=== PATIENT | female | born 1995 | race Caucasian/White ===

== ENCOUNTER 2018-01-22 07:42 | Outpatient (CLI) | payer BC, SELFPAY ==
[2018-01-22 08:37] LABS: HCT 31.7 % (36.0-46.0); HGB 10.7 g/dL (12.0-15.5); Mean Corp. HGB Concentration 33.8 g/dL (32.0-36.0); Mean Corpuscular Hemoglobin 31.4 pg (27.0-33.0); Mean Platelet Volume 9.9 fL (8.0-11.0); Platelet Count 275 x1000/uL (130-400); RBC 3.41 m/cumm (4.00-5.20); RBC Distribution Width 12.7 % (11.7-14.6); White Blood Cell Count 9.11 k/cumm (4.4-10.8)
[2018-01-22 08:56] LABS: Glucose,1 Hr (Glucola) 161 mg/dL (80-140)
== END 2018-01-22 08:02 ==
PROVIDERS: Visit Provider Advanced Practice Midwife
DX: Z34.92 Encounter for supervision of normal pregnancy, unspecified, second trimester (principal)
CPT/HCPCS: 36415; 82950; 85027

== ENCOUNTER 2018-01-22 12:33 | Outpatient (REF) | payer BC, SELFPAY ==
[2018-01-22 14:38] LABS: *AMPHETAMINES SCREEN URINE Negative (Negative); *BARBITURATES SCREEN URINE Negative (Negative); *BENZODIAZEPINES SCREEN URINE Negative (Negative); Cannabinoids THC Negative (Negative); Cocaine Screen,Urine Negative (Negative); METHADONE URINE SCREEN Negative (Negative); OPIATES URINE SCREEN Negative (Negative); Tricyclic Antidepressants POSITIVE (Negative)
== END 2018-01-22 12:53 ==
LOC: LBN 12:33
PROVIDERS: Visit Provider Advanced Practice Midwife
DX: Z34.91 Encounter for supervision of normal pregnancy, unspecified, first trimester (principal)
CPT/HCPCS: 80307

== ENCOUNTER 2018-01-28 07:10 | Outpatient (CLI) | payer BC, SELFPAY ==
[2018-01-28 09:11] LABS: Glucose 1 Hour 141 mg/dL
[2018-01-28 11:21] LABS: Glucose 3 Hour 124 mg/dL
== END 2018-01-28 07:30 ==
PROVIDERS: Visit Provider Advanced Practice Midwife
DX: Z34.93 Encounter for supervision of normal pregnancy, unspecified, third trimester (principal)
CPT/HCPCS: 36410; 82951

== ENCOUNTER 2018-02-24 16:20 | Observation (INO) | payer BC, SELFPAY ==
[2018-02-24 19:28] LABS: Bilirubin Negative (Negative); Blood Negative (Negative); Clarity Clear; Glucose Negative (Negative); Ketones Negative (Negative); Leukocyte Esterase Negative (Negative); Nitrite Negative (Negative); Specific Gravity 1.015 (1.005-1.025); Urobilinogen 0.2 EU/dL (Up TO 0.2)
== END 2018-02-25 00:05 | disposition home or self-care (01) ==
LOC: OBS 16:31
PROVIDERS: Admitting Provider Advanced Practice Midwife; PCP Family Medicine; Visit Provider Advanced Practice Midwife
DX: O60.03 Preterm labor without delivery, third trimester (principal); O26.893 Other specified pregnancy related conditions, third trimester; R19.7 Diarrhea, unspecified; Z3A.32 32 weeks gestation of pregnancy; O99.343 Other mental disorders complicating pregnancy, third trimester; F32.9 Major depressive disorder, single episode, unspecified; Z83.2 Family history of diseases of the blood and blood-forming organs and certain disorders involving the immune mechanism
CPT/HCPCS: 81003; 82731; 87081; G0378

== ENCOUNTER 2018-03-05 12:35 | Outpatient (REF) | payer BC, SELFPAY | END 2018-03-05 12:55 | LOC: LBN 12:35 | PROVIDERS: PCP Family Medicine; Visit Provider Advanced Practice Midwife | DX: R69 Illness, unspecified (principal) | CPT/HCPCS: 87491; 87591 ==

== ENCOUNTER 2018-03-19 12:22 | Outpatient (REF) | payer BC, SELFPAY ==
[2018-03-24 14:40] LABS: Chlamydia Result Negative; GC Result Negative
== END 2018-03-19 12:42 ==
LOC: LBN 12:22
PROVIDERS: PCP Family Medicine; Visit Provider Nurse Practitioner
DX: Z34.93 Encounter for supervision of normal pregnancy, unspecified, third trimester (principal); Z11.3 Encounter for screening for infections with a predominantly sexual mode of transmission; Z36.85 Encounter for antenatal screening for Streptococcus B
CPT/HCPCS: 87491; 87591; 87081

== ENCOUNTER 2018-03-26 12:12 | Outpatient (REF) | payer BC, SELFPAY ==
[2018-03-27 14:16] LABS: Chlamydia Result Negative; GC Result Negative; Specimen Description URINE
== END 2018-03-26 12:32 ==
LOC: LBN 12:12
PROVIDERS: PCP Family Medicine; Visit Provider Advanced Practice Midwife
DX: Z11.3 Encounter for screening for infections with a predominantly sexual mode of transmission (principal)
CPT/HCPCS: 87491; 87591

== ENCOUNTER 2018-04-01 17:15 | Inpatient (IN) | payer BC, SELFPAY ==
[2018-04-01 18:31] LABS: ROM Plus Positive
[2018-04-01 19:12] LABS: HGB 11.4 g/dL (12.0-15.5); Mean Corp. HGB Concentration 33.5 g/dL (32.0-36.0); Mean Corpuscular Hemoglobin 29.5 pg (27.0-33.0); Mean Corpuscular Volume 88.1 fL (80-95); Mean Platelet Volume 10.4 fL (8.0-11.0); Platelet Count 298 x1000/uL (130-400); RBC 3.86 m/cumm (4.00-5.20); RBC Distribution Width 13.5 % (11.7-14.6); White Blood Cell Count 18.03 k/cumm (4.4-10.8)
[2018-04-01] MEDS: Normal Saline Flush 10 ML SYR IVP (19:41)
[2018-04-02] MEDS: Normal Saline Flush 10 ML SYR IVP ×2 (03:47→08:15)
[2018-04-02] MEDS: Calcium Carbonate *TUMS* 500 MG CHEW (16:34)
[2018-04-02] MEDS: fentaNYL 100 MCG/2 ML VIAL IT (18:10)
[2018-04-02] MEDS: Bupivacaine 0.25% Pres-Free 30 ML VIAL (18:10)
[2018-04-02] MEDS: Calcium Carbonate *TUMS* 500 MG CHEW PO (22:11)
[2018-04-02 22:12] VITALS: TEMP 37.1
[2018-04-02] MEDS: NALBUPHINE 5 MG in Normal Saline 50 ML 100 MG IVPB (22:12)
[2018-04-03] MEDS: Sertraline 50 MG TAB PO ×2 (00:15→21:19)
[2018-04-03] MEDS: Ibuprofen 600 MG TAB PO ×3 (04:40→23:11)
[2018-04-03] MEDS: Hamamelis Leaf/Glycerin 100 EACH BOX PR ×2 (10:24→14:30)
[2018-04-03] MEDS: Acetaminophen 325 MG TAB 650 MG PO ×2 (15:59→23:12)
[2018-04-03] MEDS: Docusate Sodium 100 MG CAP PO (16:00)
[2018-04-04 07:12] LABS: HCT 23.5 % (36.0-46.0); HGB 7.2 g/dL (12.0-15.5); Mean Corp. HGB Concentration 30.6 g/dL (32.0-36.0); Mean Corpuscular Volume 91.4 fL (80-95); Mean Platelet Volume 9.5 fL (8.0-11.0); Platelet Count 261 x1000/uL (130-400); RBC 2.57 m/cumm (4.00-5.20); RBC Distribution Width 13.8 % (11.7-14.6); White Blood Cell Count 10.88 k/cumm (4.4-10.8)
[2018-04-04] MEDS: Ibuprofen 600 MG TAB PO ×3 (08:15→21:43)
[2018-04-04] MEDS: Acetaminophen 325 MG TAB 650 MG PO ×3 (08:16→20:09)
[2018-04-04] MEDS: Docusate Sodium 100 MG CAP PO (08:16)
[2018-04-04] MEDS: Sertraline 50 MG TAB PO (21:43)
[2018-04-05] MEDS: Acetaminophen 325 MG TAB 650 MG PO ×2 (00:15→12:35)
[2018-04-05] MEDS: Ibuprofen 600 MG TAB PO ×2 (04:02→12:36)
== END 2018-04-05 14:32 | disposition home or self-care (01) | DRG 806 ==
PROVIDERS: Nurse Practitioner; Admitting Provider Advanced Practice Midwife; PCP Family Medicine; Visit Provider Advanced Practice Midwife
DX: O42.02 Full-term premature rupture of membranes, onset of labor within 24 hours of rupture (principal); O63.9 Long labor, unspecified; Z37.0 Single live birth; O99.824 Streptococcus B carrier state complicating childbirth; Z3A.38 38 weeks gestation of pregnancy; O62.1 Secondary uterine inertia; O63.0 Prolonged first stage (of labor); O70.1 Second degree perineal laceration during delivery
CPT/HCPCS: 36415; 84112; 85027; 86850; 86900; 86901; G0378; J2540; J3010; J3490

== ENCOUNTER 2018-05-21 12:50 | Outpatient (REF) | payer BC, SELFPAY ==
[2018-05-23 13:48] LABS: Chlamydia Result Negative; GC Result Negative
== END 2018-05-21 13:10 ==
LOC: LBN 12:50
PROVIDERS: PCP Family Medicine; Visit Provider Nurse Practitioner Women's Health
DX: Z11.3 Encounter for screening for infections with a predominantly sexual mode of transmission (principal)
CPT/HCPCS: 87491; 87591

== ENCOUNTER 2018-07-15 11:44 | Emergency (ER) | payer BC, SELFPAY ==
[2018-07-15] VITALS (12 sets, daily range): BP systolic 124–127; BP diastolic 76–78; PULSE 86–96; RESP 16–20; TEMP 36.5–36.6; O2SAT 92–100
[2018-07-15] MEDS: Lactated Ringers 1,000 ML 1000 ML IV ×2 (11:54→12:50)
[2018-07-15] MEDS: Prochlorperazine 10 MG/2 ML VIAL 5 MG IVP ×2 (12:00→13:31)
[2018-07-15] MEDS: Normal Saline 50 ML 200 ML (12:02)
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
[2018-07-15] MEDS: Mylanta Suspension 30 ML CUP (12:28)
[2018-07-15] MEDS: Lidocaine 2% Viscous 15 ML CUP (12:28)
[2018-07-15 13:06] LABS: Bilirubin Negative (Negative); Blood Trace-intact (Negative); Clarity Clear; Glucose Negative (Negative); Ketones 15 mg/dL (Negative); Leukocyte Esterase Negative (Negative); Nitrite Negative (Negative); Urobilinogen 0.2 EU/dL (Up TO 0.2)
[2018-07-15 13:17] LABS: Bacteria Rare HPF (Negative); C & S Indicated? No/Sq. Contamination; Casts Negative LPF (Negative); Crystals Negative HPF (Negative); Epithelial Cells Moderate HPF (Negative); Mucus Negative (Negative); RBC 0-2 (0-2); WBC 0-2 HPF (0-5)
[2018-07-15] MEDS: HYDROmorphone 2 MG/ML VIAL 0.5 MG IVP (14:55)
[2018-07-15 14:59] LABS: Abs Immature Grans 0.02 k/cumm (0.0-0.09); Absolute Eosinophil Count 0.01 k/cumm (0.0-0.7); Absolute Lymphocyte Count 0.34 k/cumm (1.2-3.4); Absolute Monocyte Count 0.49 k/cumm (0.11-0.7); Absolute Neutrophil Count 11.31 k/cumm (1.2-6.7); Eosinophils % 0.1; HCT 31.9 % (36.0-46.0); HGB 10.2 g/dL (12.0-15.5); Immature Grans % 0.2; Lymphocytes % 2.8; Mean Corpuscular Hemoglobin 24.2 pg (27.0-33.0); Mean Corpuscular Volume 75.6 fL (80-95); Mean Platelet Volume 9.7 fL (8.0-11.0); Neutrophils % 92.9; Platelet Count 271 x1000/uL (130-400); RBC 4.22 m/cumm (4.00-5.20); RBC Distribution Width 15.5 % (11.7-14.6); White Blood Cell Count 12.17 k/cumm (4.4-10.8)
[2018-07-15 15:08] LABS: Anion Gap 13.6 mmol/L (3-11); BUN 10 mg/dL (7-18); CO2 22.4 mmol/L (21.0-32.0); CREATININE 0.74 mg/dL (0.55-1.02); Calcium 8.3 mg/dL (8.5-10.1); Chloride 101 mmol/L (98-107); Glucose 115 mg/dL (70-100); Potassium 3.5 mmol/L (3.5-5.1); Sodium 137 mmol/L (136-145)
== END 2018-07-15 16:05 | disposition home or self-care (01) ==
PROVIDERS: Emergency Provider Emergency Medicine; PCP Family Medicine
DX: R11.2 Nausea with vomiting, unspecified (principal); R10.9 Unspecified abdominal pain; R19.7 Diarrhea, unspecified
CPT/HCPCS: 36415; 80048; 96361; 96374; 96375; 99284; 81003; 81015; 85025; J0780

== ENCOUNTER 2019-02-11 12:03 | Outpatient (REF) | payer BC, SELFPAY | END 2019-02-11 12:23 | LOC: LBO 12:03 | PROVIDERS: PCP Student in an Organized Health Care Education/Training Program; Visit Provider Student in an Organized Health Care Education/Training Program | DX: N89.8 Other specified noninflammatory disorders of vagina (principal) | CPT/HCPCS: 87480; 87510; 87660 ==

== ENCOUNTER 2019-08-27 08:32 | Outpatient (CLI) | payer BC, SELFPAY ==
[2019-08-28 15:16] LABS: COVID-19 RT-PCR UVMMC Result Negative (Negative)
== END 2019-08-27 08:52 ==
PROVIDERS: PCP Student in an Organized Health Care Education/Training Program; Visit Provider Student in an Organized Health Care Education/Training Program
DX: R50.9 Fever, unspecified (principal); R51 Headache
CPT/HCPCS: U0003

== ENCOUNTER 2019-10-24 09:48 | Outpatient (REF) | payer BC, SELFPAY ==
[2019-10-27 12:23] LABS: Helicobacter pylori Ag, Feces Negative (Negative)
== END 2019-10-24 10:08 ==
LOC: LBN 09:48
PROVIDERS: PCP Student in an Organized Health Care Education/Training Program; Visit Provider Student in an Organized Health Care Education/Training Program
DX: Z83.79 Family history of other diseases of the digestive system; K21.9 Gastro-esophageal reflux disease without esophagitis; R11.2 Nausea with vomiting, unspecified; R19.7 Diarrhea, unspecified
CPT/HCPCS: 87338; 82270

== ENCOUNTER 2019-11-08 14:34 | Emergency (ER) | payer BC, SELFPAY ==
[2019-11-08 14:38] VITALS: BP 117/68; PULSE 80; RESP 16; TEMP 37.6; O2SAT 95
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
[2019-11-08 15:03] LABS: Abs Immature Grans 0.03 k/cumm (0.0-0.09); Absolute Basophil Count 0.01 k/cumm (0.0-0.2); Absolute Lymphocyte Count 0.87 k/cumm (1.2-3.4); Absolute Monocyte Count 0.54 k/cumm (0.11-0.7); Basophils % 0.1; HCT 38.8 % (36.0-46.0); HGB 13.5 g/dL (12.0-15.5); Immature Grans % 0.3 %; Lymphocytes % 7.9; Mean Corp. HGB Concentration 34.8 g/dL (32.0-36.0); Mean Corpuscular Hemoglobin 30.8 pg (27.0-33.0); Mean Corpuscular Volume 88.4 fL (80-95); Mean Platelet Volume 9.6 fL (8.0-11.0); Monocytes % 4.9; Neutrophils % 86.8; Platelet Count 306 x1000/uL (130-400); RBC 4.39 m/cumm (4.00-5.20); RBC Distribution Width 12.6 % (11.7-14.6); White Blood Cell Count 11.06 k/cumm (4.4-10.8)
[2019-11-08 15:12] LABS: INR 1.1 (0.9-1.1); Prothrombin Time 10.7 sec (9.3-11.0)
[2019-11-08 15:14] LABS: ALT 24 U/L (14-59); AST 15 U/L (15-37); Alkaline Phosphatase 93 U/L (46-116); Anion Gap 13.5 mmol/L (3-11); BUN 11 mg/dL (7-18); Bilirubin, Total 0.4 mg/dL (0.2-1.0); CO2 25.5 mmol/L (21.0-32.0); CREATININE 0.73 mg/dL (0.55-1.02); Calcium 9.6 mg/dL (8.5-10.1); Chloride 101 mmol/L (98-107); Glucose 109 mg/dL (74-106); Lipase 103 U/L (73-393); Magnesium 2.2 mg/dL (1.8-2.4); Potassium 3.7 mmol/L (3.5-5.1); Sodium 140 mmol/L (136-145); Total Protein 8.9 g/dL (6.4-8.2)
[2019-11-08] MEDS: Pantoprazole 40 MG VIAL 80 MG IVP (15:29)
[2019-11-08] MEDS: Ondansetron 4 MG/2 ML VIAL IVP (15:29)
[2019-11-08] MEDS: Lactated Ringers 1,000 ML 1000 ML IV (15:43)
[2019-11-08 17:14] VITALS: BP 100/66; PULSE 68; RESP 12; TEMP 37.4; O2SAT 98
== END 2019-11-08 17:20 | disposition home or self-care (01) ==
PROVIDERS: Emergency Provider Physician Assistant; PCP Student in an Organized Health Care Education/Training Program
DX: K92.0 Hematemesis (principal); K21.9 Gastro-esophageal reflux disease without esophagitis; R10.13 Epigastric pain; R11.2 Nausea with vomiting, unspecified
CPT/HCPCS: 36415; 80053; 81025; 83690; 86850; 86900; 86901; 96361; 96374; 96375; 99284; 83735; 85025; 85610; J2405

== ENCOUNTER 2019-11-20 08:07 | Outpatient (CLI) | payer BC, SELFPAY ==
[2019-11-21 23:45] LABS: COVID-19 RT-PCR Result NEGATIVE (Negative)
== END 2019-11-20 08:27 ==
PROVIDERS: PCP Student in an Organized Health Care Education/Training Program; Visit Provider Surgery
DX: Z01.818 Encounter for other preprocedural examination (principal)
CPT/HCPCS: U0003

== ENCOUNTER 2019-11-23 10:14 | Day surgery (SDC) | payer BC, SELFPAY ==
--- NOTE | 2019-11-23 06:50 | ENDO_ITS ---
Date of service: 11/23/19 Time of Service: 11:29 Endoscopy Report DATE OF PROCEDURE: 11/23/19 PRE-OP DIAGNOSIS: N/V/ Diarrhea POST-OP DIAGNOSIS: same (mild inflammation of the duodenum, stomach and esophagus) PROCEDURE: EGD with biopsies SURGEON: Mitali Fernandes ANESTHESIA: other (General/ ASA 2/ Radha Maynard, MICHELLE) ESTIMATED BLOOD LOSS: 3 PATHOLOGY: other (Duodenum bx, Gastric bx, GE junction bx) COMPLICATIONS: None DISPOSITION: same day INDICATIONS: Mrs. Deluna is a pleasant 24-year-old female who is here today to discuss an upper endoscopy. She tells me that she has had heartburn on and off since childhood. When she was in elementary school she used to take a chewable antacid. Once she became a teenager she just dealt with the heartburn and did not take any regular medication for it. 3 months after the of her son in January 2019 she woke up and had acute onset of nausea vomiting and diarrhea which lasted for about 24 hours. She did end up in the hospital because she could not stop vomiting and was given some hydration and antinausea medication. She was then okay until she had a second episode of nausea vomiting and diarrhea in July of this year. She was at work and had eaten some yogurt with maple syrup and granola which is her typical breakfast and then started to feel sick. This again lasted for about 24 hours. The third episode was this past weekend. She was at a friend's house and they ate some pancakes and fruit and on her way home she started to feel ill and had diarrhea nausea and vomiting that lasted another 24 hours. She feels fatigued and has a sore throat. She was tested for COVID in July just to make sure that that was not the reason for it and that was negative. She does note that her heartburn seems to be worse when she is under stress or anxiety. She is currently taking 40 mg of famotidine twice daily as well as some Carafate. She has noted some improvement in the heartburn. There is not a particular food that seems to be causing the symptoms. She also notes sore throat and sometimes an acidic taste in the back of her throat in the mornings when she wakes up. She has a history of tonsillar stones. No history of kidney stones. When she does have pain it is located in the epigastrium and left upper quadrant and left flank. The pain usually starts after she has the diarrhea and nausea and vomiting. FINDINGS: Mild inflammation of the duodenum, stomach and distal esophagus PROCEDURE DESCRIPTION: After informed consent was obtained the patient was take to the procedure room and placed in a supine position. Monitors were applied and a time out was done. The patients name, date of , procedure type, allergies to medications and metal in their body was reviewed. A bite block was placed and the patient was sedated. Once sedated and comfortable the gastroscope was advanced through the oropharynx which was grossly normal into the esophagus. The proximal and mid- esophagus were normal. In the distal esophagus there was mild inflammation noted. The scope was advanced into the stomach and through the pylorus into the 3rd portion of the duodenum. The duodenum was noted to have mild inflammation. Biopsies were done to rule out Celiac. The scope was retracted back into the stomach and biopsies were done to rule out H. pylori. There were no ulcers. There was mild inflammation of the stomach. No polyps. The scope was retro- flexed. The cardia and fundus were noted to be normal. There was no hiatal hernia noted. The scope was retracted back into the esophagus and biopsies were done of the GE junction to rule out Valencia's. The Z line was regular. The GE junction was at 35 cm. The scope was removed and the patient was woken up and taken back to [facility] in stable condition. Follow up: 2 weeks
--- NOTE | 2019-11-23 06:51 | W.PM.DSUDISC ---
Discharge Plan Disposition Patient Disposition: HOME Condition: Good Discharge Details Reason For Visit: N/V Attending Provider: Mitali Fernandes Primary Care Provider: Cherelle Quinones Home Meds and New Rx's Prescriptions: New omeprazole 40 mg capsule,delayed release(DR/EC) 40 mg PO DAILY Qty: 30 RF: 0 Continued fluticasone furoate 27.5 mcg/actuation spray,suspension 1 spray ROSA DAILY Qty: 18.2 RF: 1 Mirena 20 mcg/24 hr (5 years) intrauterine device 1 insert IY ONCE RF: 0 sucralfate 100 mg/mL suspension 10 ml PO BID Qty: 420 RF: 1 hydrocortisone 28.35 GM cream 1 applic Topical PRN Qty: 1 RF: 4 ondansetron 4 mg tablet,disintegrating 4 mg PO Q6H PRN (Reason: nausea and vomiting) Qty: 14 RF: 0 metoclopramide HCl [Reglan] 5 mg tablet 5 mg PO QAC PRNRF: 0 Discontinued famotidine 20 mg tablet 40 mg PO BID RF: 0 Discharge Instructions Instructions: Gastritis (DC), Diet for Stomach Ulcers and Gastritis (ED), Duodenitis (DC) Additional Instructions: Findings: mild inflammation of the stomach and esophagus Follow up: 2 weeks Please call if you develop: fevers >101.5 Nausea or Vomiting Abdominal pain that is not transient [facility] POST ENDOSCOPY INSTRUCTIONS 1. Because there will be medication in your system for the next 24 hours, you may feel a little sleepy. Your coordination will be affected. Therefore: a. Do not drive or operate dangerous equipment for 24 hours. b. Do not drink alcohol beverages for 24 hours (not even beer). c. Plan to go home and rest for the day. 2. Generally there are no restrictions on your activity after a day or so has gone by, but you may feel a bit fatigued for a few days. 3 After you arrive home you may have a light meal and return to a normal diet as you can tolerate it without feeling sick to your stomach. 4. After surgery, you may feel pain or discomfort. This should be only transient, but if it persists please contact your doctor. 5. If there are any questions regarding the findings of your procedure, please feel free to contact your doctor. 6. If you are unable to contact your doctor with a problem, contact the hospital at [phone]. 7. Continue all your regular medications unless directed otherwise. I understand the above instructions and have no questions. Signature of Patient or Responsible Adult Escort Date/Time Name of Responsible Adult Escort Signature of Nurse Date/Time Activity:: Activity as Tolerated Diet:: low acid Discharge Orders Discharge Orders: Discharge Order (Routine); Ordered 11/23/19 Ordered By: Mitali Fernandes
[2019-11-23 10:35] VITALS: BP 121/69; PULSE 78; RESP 20; TEMP 36; O2SAT 100
[2019-11-23] MEDS: Lactated Ringers 1,000 ML 80 ML IV (11:04)
--- NOTE | 2019-11-23 11:19 | STOM_PTH ---
PATIENT: Alison Deluna LOC: [facility] U#:[id number] AGE/SX: 24/F ROOM: RE11/23/[address]: Mitali Fernandes MD : [id number] BED: DIS: 11/23/2019 SPEC #: [id number] RECD: 11/23/19 12:52 STATUS: NIKHIL REQ #: [id number] ANGIE: 11/23/19 11:[address]: Mitali Fernandes DEPT: Surgical Specimen RECD BY: Loulou Gil ENTERED: 11/23/19 12:56 SP TYPE: STOMACH OTHR DR: Cherelle Quinones DO Tissues: 1 - BIOPSY BOWEL 2 - STOMACH BIOPSY 3 - ESOPHAGUS BIOPSY Procedures: GROSS AND MICRO LEVEL 4 Comments: [id number]
[2019-11-23 12:05] VITALS: BP 101/58; PULSE 69; RESP 16; TEMP 36; O2SAT 98
== END 2019-11-23 12:50 | disposition home or self-care (01) ==
LOC: SUR 10:14
PROVIDERS: PCP Student in an Organized Health Care Education/Training Program; Visit Provider Surgery
PROC: 0DJ68ZZ Inspection of Stomach, Via Natural or Artificial Opening Endoscopic (ICD-10-PCS; CPT 43235; principal; 2019-11-23 11:00)
DX: K21.0 Gastro-esophageal reflux disease with esophagitis (principal); K31.89 Other diseases of stomach and duodenum; R11.2 Nausea with vomiting, unspecified; R19.7 Diarrhea, unspecified; K29.80 Duodenitis without bleeding; K29.70 Gastritis, unspecified, without bleeding
CPT/HCPCS: 43239; 81025; 88305; J2704

== ENCOUNTER 2019-12-21 00:45 | Outpatient (CLI) | payer BC, SELFPAY ==
--- NOTE | 2019-12-21 06:30 | DI.US_ITS ---
EXAM: US ABDOMEN INDICATION: NAUSEA,VOMITING, NORMAL EGD,R11.2,R19.7 COMPARISON: US OB US 2-3 TRIMESTER TRANSABD*P from 11/15/2017 TECHNIQUE: Ultrasound abdomen performed using standard protocol FINDINGS: Abdominal ultrasound was performed according to the usual protocol. The liver is normal in size and shape. No focal hepatic lesion seen. There is no evidence of cholelithiasis or biliary dilatation. No gallbladder wall thickening or peric holecystic fluid collection. Pancreas appears intact as visualized. Spleen is unremarkable in appearance with no focal lesion. Kidneys are normal in size and shape. No renal mass, hydronephrosis, or nephrolithiasis. Abdominal aorta and IVC are of normal diameter. IMPRESSION: Negative abdominal ultrasound .
== END 2019-12-21 01:05 ==
PROVIDERS: PCP Student in an Organized Health Care Education/Training Program; Visit Provider Surgery
DX: R11.2 Nausea with vomiting, unspecified (principal); R19.7 Diarrhea, unspecified
CPT/HCPCS: 76700

== ENCOUNTER 2020-02-28 06:57 | Emergency (ER) | payer BC, SELFPAY ==
[2020-02-28 07:02] VITALS: BP 124/104; PULSE 76; RESP 16; TEMP 36; O2SAT 98
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
[2020-02-28] MEDS: Normal Saline 1,000 ML 1000 ML IV (07:15)
[2020-02-28] MEDS: Ondansetron 4 MG/2 ML VIAL IVP ×2 (07:15→08:21)
[2020-02-28] MEDS: Pantoprazole 40 MG VIAL 80 MG IVP (07:20)
[2020-02-28 07:33] LABS: Abs Immature Grans 0.11 10^3/uL (0.0-0.06); Absolute Eosinophil Count 0.04 10^3/uL (0.0-0.7); Absolute Monocyte Count 0.81 10^3/uL (0.1-0.8); Absolute Neutrophil Count 15.92 10^3/uL (1.2-6.7); Basophils % 0.5; Eosinophils % 0.2; HCT 39.6 % (36.0-46.0); HGB 13.4 g/dL (11.2-15.7); Immature Grans % 0.6; Lymphocytes % 11.9; MCH 30.3 pg (27.0-33.0); MCHC 33.8 % (32.0-36.0); MCV 89.6 fL (80-95); MPV 9.8 fL (8.0-11.0); Monocytes % 4.2; Neutrophils % 82.6; Nucleated RBC 0 %; Platelet Count 342 10^3/uL (130-400); RBC 4.42 10^6/uL (3.93-5.22); RDW-SD 38.9 fL; WBC 19.27 10^3/uL (4.4-10.8)
[2020-02-28 07:35] LABS: Absolute Lymphocyte Count 2.29 10^3/uL (1.2-3.4)
[2020-02-28 07:44] LABS: ALT 76 U/L (14-59); AST 32 U/L (15-37); Albumin 4.6 g/dL (3.4-5.0); Alkaline Phosphatase 103 U/L (46-116); BUN 10 mg/dL (7-18); Bilirubin, Total 0.7 mg/dL (0.2-1.0); CREATININE 0.84 mg/dL (0.55-1.02); Calcium 9.2 mg/dL (8.5-10.1); Chloride 102 mmol/L (98-107); Glucose 136 mg/dL (74-106); Lipase 91 U/L (73-393); Potassium 3.9 mmol/L (3.5-5.1); Sodium 137 mmol/L (136-145)
[2020-02-28 08:28] VITALS: BP 116/70; PULSE 85; RESP 17; TEMP 36.2; O2SAT 100
== END 2020-02-28 08:44 | disposition home or self-care (01) ==
PROVIDERS: Student in an Organized Health Care Education/Training Program; Emergency Provider Student in an Organized Health Care Education/Training Program; PCP Student in an Organized Health Care Education/Training Program
DX: K21.9 Gastro-esophageal reflux disease without esophagitis (principal); R11.2 Nausea with vomiting, unspecified
CPT/HCPCS: 80053; 83690; 96361; 96374; 96375; 96376; 99284; 83735; 85025; J2405

== ENCOUNTER 2020-05-31 02:28 | Outpatient (CLI) | payer SELFPAY ==
[2020-06-01 12:34] LABS: COVID-19 RT-PCR UVMMC Result Negative (Negative)
== END 2020-05-31 02:29 | disposition home or self-care (01) ==
LOC: LBO 02:28
PROVIDERS: PCP Student in an Organized Health Care Education/Training Program; Visit Provider Student in an Organized Health Care Education/Training Program
DX: Z20.822 Contact with and (suspected) exposure to COVID-19 (principal)
CPT/HCPCS: U0003

== ENCOUNTER 2020-06-07 02:03 | Outpatient (CLI) | payer SELFPAY ==
[2020-06-08 14:03] LABS: COVID-19 RT-PCR UVMMC Result Negative (Negative)
== END 2020-06-07 02:04 | disposition home or self-care (01) ==
LOC: LBO 02:03
PROVIDERS: PCP Student in an Organized Health Care Education/Training Program; Visit Provider Student in an Organized Health Care Education/Training Program
DX: Z20.822 Contact with and (suspected) exposure to COVID-19 (principal)
CPT/HCPCS: U0003

== ENCOUNTER 2020-06-13 01:38 | Outpatient (CLI) | payer SELFPAY ==
[2020-06-14 11:52] LABS: COVID-19 RT-PCR UVMMC Result Negative (Negative)
== END 2020-06-13 01:39 | disposition home or self-care (01) ==
LOC: LBO 01:38
PROVIDERS: PCP Student in an Organized Health Care Education/Training Program; Visit Provider Student in an Organized Health Care Education/Training Program
DX: Z20.822 Contact with and (suspected) exposure to COVID-19 (principal)
CPT/HCPCS: U0003